=== PATIENT | female | born 1990 | race Caucasian/White ===

== ENCOUNTER 2021-09-21 09:03 | Outpatient (CLI) | payer OTHER, SELFPAY ==
[2021-09-21 12:12] LABS: HCG Qualitative Serum* Negative (Negative)
[2021-09-22 23:16] LABS: Prolactin 8.1 ng/mL (2.8-29.2)
== END 2021-09-21 09:04 | disposition home or self-care (01) ==
PROVIDERS: Visit Provider Physician Assistant
DX: N93.8 Other specified abnormal uterine and vaginal bleeding (principal); R53.83 Other fatigue; R63.5 Abnormal weight gain
CPT/HCPCS: 84146; 84443; 84703

== ENCOUNTER 2021-09-22 08:20 | Outpatient (CLI) | payer OTHER, SELFPAY ==
--- NOTE | 2021-09-22 08:45 | CRLHL7_ITS ---
For Patients: As a result of the Century Cures Act, medical imaging exams and procedure reports are released immediately into your electronic medical record. You may view this report before your referring provider. If you have questions, please contact your health care provider. INDICATION: abnormal uterine bleeding COMPARISON: none TECHNIQUE: 2D merino scale and color Doppler images were acquired of the pelvis using a transabdominal and transvaginal approach. FINDINGS: Sonographic images demonstrate a normal size and smooth outer contour of the uterus. Uterus measures 8.8 cm in length by 3.7 cm in AP diameter by 4.8 cm in transverse dimension. The myometrium has a normal uniform echotexture. Multiple cystic changes in the cervix. The endometrial lining measures 9 mm in composite thickness. The right ovary measures 4.7 x 3.0 x 3.7 cm in size and the left ovary measures 2.4 x 1.1 x 0.9 cm. Simple right ovarian cyst is present measuring 3.7 x 2.7 x 3.2 cm. The ovaries demonstrate normal arterial and venous blood flow on color Doppler analysis. There are no suspicious fluid collections within the cul-de-sac. IMPRESSION: Endometrial thickness 9 millimeters. Multiple (nabothian) cystic changes associated with the cervix. This is more prominent than usual and direct visualization suggested. Incidental simple right ovarian cyst measuring 3.7 cm. Dictated by Laureano Chapman MD @ 09/22/2021 10:26:28 AM (Electronically Signed)
== END 2021-09-22 08:21 | disposition home or self-care (01) ==
LOC: US 08:20
PROVIDERS: Visit Provider Physician Assistant
DX: N93.8 Other specified abnormal uterine and vaginal bleeding (principal); R93.89 Abnormal findings on diagnostic imaging of other specified body structures; N83.201 Unspecified ovarian cyst, right side
CPT/HCPCS: 76830; 76856

== ENCOUNTER 2021-10-01 15:38 | Outpatient (CLI) | payer OTHER, SELFPAY ==
[2021-10-01 17:21] LABS: Cholesterol* 217 mg/dL (90-199); HDL Cholesterol* 58 mg/dL (>=50); LDL Cholesterol Calculated 132 mg/dL (<100); Triglycerides* 134 mg/dL (40-149)
[2021-10-02 10:37] LABS: Glucose* 99 mg/dL (60-115)
[2021-10-05 10:55] LABS: 17-Hydroxyprogesterone HPLC 15.47 ng/dL (<=206.00)
[2021-10-14 16:52] LABS: Sex Hormone Binding Globulin 80 nmol/L (25-122); Testosterone, Free LC-MS/MS 2.1 pg/mL (1.3-9.2); Testosterone, LC-MS/MS 23 ng/dL (9-55)
== END 2021-10-01 15:39 | disposition home or self-care (01) ==
PROVIDERS: Visit Provider Physician Assistant
DX: N97.0 Female infertility associated with anovulation (principal)
CPT/HCPCS: 80061; 82947; 83498; 84270; 84402; 84403

== ENCOUNTER 2023-04-28 11:03 | Outpatient (CLI) | payer OTHER, SELFPAY | END 2023-04-28 11:04 | disposition home or self-care (01) | LOC: NFLDREF 11:05 | PROVIDERS: Visit Provider Physician Assistant | DX: N93.8 Other specified abnormal uterine and vaginal bleeding (principal) | CPT/HCPCS: 84443 ==

== ENCOUNTER 2023-05-03 14:32 | Outpatient (CLI) | payer OTHER, SELFPAY ==
--- NOTE | 2023-05-03 15:00 | US_ITS ---
Patient: YAEL HARRIS Facility:?[facility] Patient ID:?[id number] Site Patient ID:?[id number]. Site :?[id number] Study:?US-Pelvis TRANSABDOMINAL AND TRANSVAGINAL-05/03/2023 3:16:23 PM Ordering Physician:?ZEINA LYNCH Final Report: INDICATION: ABNORMAL UTERINE AND VAGINAL BLEEDING COMPARISON: 09/22/2021 TECHNIQUE: 2D merino scale and color Doppler images were acquired of the pelvis using a transabdominal and transvaginal approach. FINDINGS: Sonographic images demonstrate a normal size and smooth outer contour of the uterus. Uterus measures 9.7 cm in length by 3.5 cm in AP diameter by 4.9 cm in transverse dimension. The myometrium has a normal uniform echotexture. The endometrium measures 6 millimeters. The endometrium is heterogeneous with multi cystic areas associated with the lower uterine segment/endocervical canal along with areas of increased vascularity. The right ovary measures 3.3 x 1.7 x 2.4 cm in size and the left ovary measures 5.5 x 2.6 x 4.3 cm. The ovaries demonstrate normal arterial and venous blood flow on color Doppler analysis. Left ovarian cyst is present measuring 3.7 x 2.1 x 3.8 cm. This is mostly cystic although a nodular nonvascular areas present at the anterior aspect measuring 1.5 cm. IMPRESSION: Heterogeneous and multi cystic endometrium associated with nabothian cysts with the endometrium measuring up to 6 millimeters. 3.8 cm left ovarian cyst with a solid nonvascular component. Recommendations include either MRI or follow-up per gynecology protocol. Dictated by Laureano Chapman MD @ 05/04/2023 6:36:16 AM Signed by:?Laureano Chapman MD @05/04/2023 6:36:16 AM (Electronic Signature)
== END 2023-05-03 14:33 | disposition home or self-care (01) ==
LOC: US 14:32
PROVIDERS: Visit Provider Physician Assistant
DX: N93.8 Other specified abnormal uterine and vaginal bleeding (principal); N83.202 Unspecified ovarian cyst, left side; N88.8 Other specified noninflammatory disorders of cervix uteri
CPT/HCPCS: 76830; 76856; 93976

== ENCOUNTER 2023-09-05 17:41 | Outpatient (CLI) | payer OTHER, SELFPAY ==
--- NOTE | 2023-09-05 18:00 | CRLHL7_ITS ---
For Patients: As a result of the Century Cures Act, medical imaging exams and procedure reports are released immediately into your electronic medical record. You may view this report before your referring provider. If you have questions, please contact your health care provider. INDICATION: Follow up left ovarian cyst. TECHNIQUE: Transabdominal and transvaginal pelvic ultrasound. COMPARISON: 05/03/2023 ultrasound. FINDINGS: Uterus is anteverted and measures 8.5 x 4.8 x 4.9 cm. Endometrial stripe thickness is 5 mm. Both ovaries appear normal. Previously seen left ovarian cyst has resolved. No adnexal mass or free fluid. IMPRESSION: Left ovarian cyst has resolved. Normal pelvic ultrasound. Dictated by Shyam Lafleur MD @ 09/06/2023 1:52:13 PM (Electronically Signed)
== END 2023-09-05 17:42 | disposition home or self-care (01) ==
PROVIDERS: PCP Physician Assistant; Visit Provider Physician Assistant
DX: N83.201 Unspecified ovarian cyst, right side (principal)
CPT/HCPCS: 76830; 76856

== ENCOUNTER 2024-02-08 06:55 | Day surgery (SDC) | payer OTHER, SELFPAY ==
[2024-02-08] VITALS (13 sets, daily range): BP systolic 103–129; BP diastolic 44–81; PULSE 55–74; RESP 16; TEMP 36.3–37.1; O2SAT 94–97; BMI 34.5
[2024-02-08] MEDS: SODIUM CHLORIDE 0.9 % (FLUSH) 10 ML SYRINGE IVF (07:41)
[2024-02-08 07:47] LABS: Ur HCG Qualitative* Negative (Negative)
--- NOTE | 2024-02-08 08:35 | W.PM.H&PU ---
History & Physical Update History & Physical Update H&P Reviewed and patient assessed: No changes noted
--- NOTE | 2024-02-08 09:00 | W.ANESCHARGE ---
Anesthesia Charges Start Date/Time Anesthesia Start Date: 02/08/24 Anesthesia Start Time: 09:04 Stop Date/Time Anesthesia Stop Date: 02/08/24 Anesthesia Stop Time: 10:34
[2024-02-08] MEDS: BUPIVACAINE 0.25% 30 ML 9 ML INJECTION (09:35)
[2024-02-08] MEDS: LIDOCAINE 1% MDV 9 ML INJECTION (09:35)
--- NOTE | 2024-02-08 09:43 | SUR.OPER ---
PATIENT QUESTIONS ANSWERED SATISFACTORILY PREOPERATIVELY. PATIENT BROUGHT TO OR #4 PER CART. Patient positioned supine on OR #4 bed.? Perioperative team supported arms bilaterally on arm boards.? Final approval of positioning by surgeon. CONTINUOUS IRRIGATION OF THE UTERUS WITH NACL DURING HYSTEROSCOPY PART OF THE PROCEDURE.
--- NOTE | 2024-02-08 10:33 | P.GYNPRC_ITS ---
Procedure Note Date of procedure: 02/08/24 [address] [facility] bill your pro fee for this procedure?: Yes Pre-op diagnosis: Menorrhagia, unresponsive to medical management Undesired fertility Post-op diagnosis: Menorrhagia, unresponsive to medical management Undesired fertility Left paratubal cyst Subcentimeter endometrial polyps Procedure: Laparoscopy with bilateral salpingectomy and excision of left paratubal cyst Hysteroscopy with polypectomy and visual dilation and curettage Micaela endometrial ablation Anesthesia: GETA Complications: None Surgeon: Monique Lama MD Estimated blood loss (mL): 10 IV fluids (mL): 450 Urine Output (mL): 600 Pathology: specimen obtained, sent to pathology (Bilateral fallopian tubes, left paratubal cyst, endometrial curettings) Condition: stable Disposition: same day Findings: 1. Upon pelvic exam under anesthesia, the cervix and vagina were normal in appearance. Uterus was mobile and anteverted, of normal size and texture. There were no palpable adnexal masses. 2. Upon laparoscopy, survey of the upper abdomen revealed a normal appearance to the inferior edge of the liver, gallbladder and stomach. Bowels were grossly normal appearance, as was the base of the appendix; the tip was retrocecal and not visualized. Survey of the pelvis revealed normal appearance to the uterus. Bilateral tubes and ovaries were normal in appearance. There was a left fimbrial cyst those proximally 2 cm in greatest dimension and appeared simple. The cul-de-sac and bladder reflection were normal in appearance. 3. Upon hysteroscopy, the endocervix appeared normal. The endometrial cavity exhibited diffusely thickened endometrium with some subcentimeter polyps near the right cornual region. The cavity shape was normal appearance, as were the tubal ostia. 4. Uterus sounded to 8 cm, with cervical length of 3 cm. 5. Saline deficit 90 mL Procedure Description: Patient was taken to the operating room with IV running. She was positioned in dorsal lithotomy position with her legs fully supported in Yellofin stirrups. General anesthesia was administered. She was prepped and draped in the usual sterile fashion. Pelvic exam under anesthesia was performed for the above-noted findings. Speculum was inserted. Cervix visualized. Single-toothed uterine manipulator was inserted through the cervix into the lower uterine segment, and affixed to the anterior cervical lip. Costello catheter was placed. Patient's legs were then placed in neutral position. Attention was turned to patient's abdomen. Infraumbilical area was infiltrated with a small amount of Marcaine. A 5 mm infraumbilical incision was made with a scalpel and carried down to the underlying layer of fascia with the hemostat. 5 mm camera was placed within the 5 mm Fios Kii trocar, and advanced under direct visualization through the anterior abdominal wall into the peritoneal cavity, while tenting up the anterior abdominal wall. The trocar was removed. The balloon was inflated, holding the port in place. Pneumoperitoneum was achieved. Survey of the abdomen and pelvis revealed the above-noted findings. Two additional port sites were created. The first was in the patient's left lower quadrant, just superomedial to the left ASIS. The second was a hand's breath superior to and slightly medial to the first. Each was infiltrated with small amount of Marcaine prior to incision. A 5 mm incision was made at each site, after assuring that large vessels were out of harm's way. A 5 mm Fios Kii port was inserted at each site, under direct visualization and without complication. The balloon on each of the 3 ports was inflated, holding each in place. Attention was first turned to the right fallopian tube, which was divided from the mesosalpinx, using the Thunderbeat cautery device, proceeding laterally to medially, and the tube was amputated at the right uterine cornua. This was removed through the port site and sent to pathology. This procedure was repeated on the patient's left side, including removal of the paratubal cyst. The left fallopian tube was also amputated at the cornua and removed from piecemeal from the patient's abdomen. The left paratubal cyst was sheared away from the tube during attempts at removal. Ultimately, this was grasped, ruptured in the process, and easily removed through the port thereafter. This was also sent to pathology for further analysis. Survey of the pelvis revealed hemostasis. Procedure was deemed complete. The balloons of all port sites were deflated, and all ports were removed after pneumoperitoneum was released. The skin of each port site was closed in a subcuticular fashion with 4 0 Vicryl. Surgical glue was applied above this. Patient was again positioned in dorsal lithotomy position. The single-toothed uterine manipulator was removed. Speculum was inserted. Cervix visualized and grasped along the anterior lip with a single-tooth tenaculum. Cervix was serially dilated to accommodate the TRUCLEAR hysteroscope. This was assembled with saline inflow and outflow in place. The line was flushed of bubbles. The hysteroscope was advanced through the cervix into the endometrial cavity for the above noted findings. The tissue morcellator was then inserted through the operating channel. Window lock was performed. Under direct visualization, the endometrial cavity was circumferentially curetted with the tissue morcellator. The hysteroscope and morcellator were then removed from the uterus. Uterine and cervical measurements were then performed with uterine sound, with findings as noted above. The Micaela device was then powered on. The hand-held device was inserted through the cervix and the array was deployed. Appropriate uterine width was noted. The intracervical balloon was then inflated. The pedal was pushed to activate to the cavity integrity test, both of which were passed. The ablation cycle then ensued. Thereafter, the intracervical balloon was deflated, and the device was retracted from the uterus. Tenaculum was removed from the anterior lip of cervix. Hemostasis was noted. Costello catheter was removed. Patient tolerated procedure well. She was taken to recovery area in stable condition.
--- NOTE | 2024-02-08 10:35 | W.ANESCHARGE ---
Anesthesia Charges Start Date/Time Anesthesia Start Date: 02/08/24 Anesthesia Start Time: 09:04 Stop Date/Time Anesthesia Stop Date: 02/08/24 Anesthesia Stop Time: 10:34
[2024-02-08] MEDS: LACTATED RINGERS 500 ML 500 ML 100 ML IV (10:38)
--- NOTE | 2024-02-08 11:28 | SUR.PHASEII ---
Patient states pain 07/14. Reviewed with patient what she had received and discussed options of tylenol and oxycodone available in recovery. Patient declined stating she would take the medication she gets from her pharmacy. Patient verbalized understanding to notify lyric writer if she changes her mind and would like medication during her recovery stay.
== END 2024-02-08 12:23 | disposition home or self-care (01) ==
PROVIDERS: Visit Provider Obstetrics & Gynecology
PROC: (CPT 58661; principal; 2024-02-08 08:30)
PROC: 0UF98ZZ Fragmentation in Uterus, Via Natural or Artificial Opening Endoscopic (ICD-10-PCS; CPT 58661; 2024-02-08 08:30)
DX: N92.0 Excessive and frequent menstruation with regular cycle (principal); Z30.2 Encounter for sterilization; N83.8 Other noninflammatory disorders of ovary, fallopian tube and broad ligament; N84.0 Polyp of corpus uteri; R93.89 Abnormal findings on diagnostic imaging of other specified body structures
CPT/HCPCS: 58661; 58662; 58558; 00840; 36415; 81025; 86850; 86900; 86901; 88302; 88304; 88305; J2003; C1782; J0665; J1100; J1171; J1630; J1885; J2405; J2704; J2710; J3010; J7120